=== PATIENT | female | born 1950 | race Caucasian/White ===

== ENCOUNTER 2017-09-07 00:24 | Inpatient (IN) | payer BC ==
[2017-09-07 01:26] LABS: #Eosinphils 0.3 thou/uL (0.0-0.7); #Lymphocytes 2.1 thou/uL (1.20-3.40); #Monocytes 0.9 thou/uL (0.11-0.59); #Neutrophils 6.9 thou/uL (1.40-6.50); %Basophils 0.4 % (0.0-1.0); %Eosinophils 2.7 % (0.0-10.0); %Lymphocytes 20.6 % (21.0-51.0); %Monocytes 8.9 % (0.0-10.0); %Neutrophils 67.5 % (42.0-75.0); Hemoglobin 15.4 g/dL (12.0-16.0); Mean Corpuscular Hemoglobin 31.5 pg (27.0-31.0); Mean Corpuscular Volume 98.4 fl (81.0-99.0); Mean Platelet Volume 7.2 fL (7.4-10.4); Platelet Count 285 thou/uL (130-400); RBC Distribution Width 13.4 % (11.5-14.5); Red Blood Cell (RBC) Count 4.87 mill/uL (4.20-5.40); White Blood Cell (WBC) Count 10.2 thou/uL (4.8-10.8)
[2017-09-07 01:42] LABS: CKMB 0.6 ng/mL (0-6.6); Troponin I Less than 0.010 ng/mL (< 0.028)
[2017-09-07 01:44] LABS: ALT (SGPT) 28 U/L (8-55); AST (SGOT) 18 U/L (5-34); Albumin 4.1 g/dL (3.4-4.8); Alkaline Phosphatase 94 U/L (40-150); Anion Gap 16 mmol/L (10-20); BUN (Urea Nitrogen) 10 mg/dL (9.8-20.1); Bilirubin, Total 0.4 mg/dL (0.2-1.2); CK (CPK) 28 U/L (29-168); Calc. Creatinine Clearance 0 mL/min (70-130); Calcium 9.9 mg/dL (7.8-10.44); Carbon Dioxide 26 mmol/L (23-31); Chloride 101 mmol/L (98-107); Estimated GFR-MDRD 66; Globulin 3.7 g/dL (2.4-3.5); Glucose 104 mg/dL (80-115); Potassium 4.6 mmol/L (3.5-5.1); Protein, Total 7.8 g/dL (6.0-8.3); Sodium 138 mmol/L (136-145)
[2017-09-07] MEDS ORDERED: Nitroglycerin 0.4 MG TAB (25 Tab Bottle) ONE (02:25)
[2017-09-07] MEDS ORDERED: Ondansetron HCl/PF 4 MG/2 ML Vial ONE (02:25)
[2017-09-07] MEDS ORDERED: Albuterol Sulfate 2.5 mg/3 ml Neb ONE (05:36)
[2017-09-07 06:43] LABS: CKMB 0.6 ng/mL (0-6.6); Troponin I Less than 0.010 ng/mL (< 0.028)
--- NOTE | 2017-09-07 07:51 | RAD ---
PA AND LATERAL VIEWS CHEST: HISTORY: Dyspnea. FINDINGS: Comparison is made with the exam dated 02/02/11. The heart size is enlarged. The lungs are expanded without confluent areas of consolidation, pneumothorax, porsche pulmonary edema, or pleural effusions. There are mild degenerative changes in the spine. IMPRESSION: Cardiomegaly. POS: NOA
[2017-09-07] MEDS ORDERED: Artificial Tears 18 DROP/0.9 ML EA EYE PRN (09:23)
[2017-09-07] MEDS ORDERED: Senokot 8.6 MG TAB PO PRN (09:23)
[2017-09-07] MEDS ORDERED: Zolpidem Tartrate 5 MG TAB PO PRN (09:23)
[2017-09-07] MEDS ORDERED: Eucerin (Mineral Oil/Petrolatum,White) 30 gm Jar TOP PRN (09:23)
[2017-09-07] MEDS ORDERED: Sodium Chloride 0.65% Nasal 44 ML BOT EA NARE PRN (09:23)
[2017-09-07] MEDS ORDERED: Ondansetron ODT 4 MG TAB PO PRN (09:23)
[2017-09-07] MEDS ORDERED: Dextrose 50% Abboject 50 ML SYRINGE SLOW IVP PRN (09:23)
[2017-09-07] MEDS ORDERED: Ondansetron HCl/PF 4 MG/2 ML Vial IVP PRN (09:23)
[2017-09-07] MEDS ORDERED: Dextrose 5% in Water 1,000 ML IV PRN (09:23)
[2017-09-07] MEDS ORDERED: hydrALAZINE 20 MG/ML VIAL SLOW IVP PRN (09:23)
[2017-09-07] MEDS ORDERED: Loratadine 10 MG TAB PO PRN (09:23)
[2017-09-07] MEDS ORDERED: Loperamide HCl 2 MG CAP PO PRN (09:23)
[2017-09-07] MEDS ORDERED: HumaLOG 300 UNITS/3 ML VIAL SC PRN ×2 (09:23)
[2017-09-07] MEDS ORDERED: Mag-Al 1200 mg/1200 mg/30 ML UDCUP PO PRN (09:23)
[2017-09-07] MEDS ORDERED: Chloraseptic Spray 180 ml Bottle PO PRN (09:23)
[2017-09-07] MEDS ORDERED: Acetaminophen 325 MG TAB PO PRN (09:23)
[2017-09-07] MEDS ORDERED: Diabetic Tussin 200 MG/10 ML UDCUP PO PRN (09:23)
[2017-09-07] MEDS ORDERED: Nitroglycerin 0.4 MG TAB (25 Tab Bottle) SL PRN (09:23)
[2017-09-07] MEDS ORDERED: Milk Of Magnesia 30 ML UDCUP PO PRN (09:23)
[2017-09-07 10:11] LABS: Troponin I Less than 0.010 ng/mL (< 0.028)
--- NOTE | 2017-09-07 12:32 | HP ---
PRIMARY CARE PHYSICIAN: Lisa Elkins. REASON FOR ADMISSION: COPD/asthma exacerbation with bronchitis. HISTORY OF PRESENT ILLNESS: A 66-year-old female who has history of asthma/COPD, morbid obesity, natividad betes type 2 who came to emergency room for evaluation of shortness of breath. Patient reports that for the last 3 months, she is having increasing shortness of breath. Shortness of breath gets worse when she lies down. She has intermittent coughing spell that causes her chest wall to hurt. She als o gets dyspnea on exertion. The patient reports that she has significant weight gain over last sever al months. She was having subjective fever at home. She denies any hemoptysis. She denies any prod uctive of phlegm. She denies any palpitations, dizziness, or syncope. She denies any lower extremit y edema. Patient reports that over the last couple of months, she has tried different antibiotic cou rse and steroid course without any significant help. She is up to date in her flu vaccine. She jhonny es any exertional chest pain, but she attributes her chest discomfort or ribcage pain because of coug sandor and because of coughing she also gets lower abdominal discomfort as well as back discomfort. Fo r the last 3 days she was not able to lie down and unable to sleep and that is why she decided to com e to the ER. In the emergency room, she was tachycardic. She was saturating normal on room air. Sh e was febrile and hemodynamically stable. She denies any UTI symptoms. She denies any constipation, diarrhea, melena, hematochezia. ALLERGIES: LATEX, NATURAL RUBBER, and SULFA DRUGS. CURRENT HOME MEDICATIONS: Synthroid 200 mcg p.o. daily, metformin 1000 mg p.o. b.i.d., albuterol neb ulization as needed basis, Pulmicort nebulization twice daily, Phenergan with codeine bedtime, Cymbal ta 30 mg daily, metoprolol succinate 50 mg p.o. daily, Perforomist twice daily. REVIEW OF SYSTEMS: The following complete review of systems was negative, unless otherwise mentioned in the HPI or below: Constitutional: Weight loss or gain, ability to conduct usual activities. Skin: Rash, itching. Eyes: Double vision, pain. ENT/Mouth: Nose bleeding, neck stiffness, pain, tenderness. Cardiovascular: Palpitations, dyspnea on exertion, orthopnea. Respiratory: Shortness of breath, wheezing, cough, hemoptysis, fever or night sweats. Gastrointestinal: Poor appetite, abdominal pain, heartburn, nausea, vomiting, constipation, or diarr hea. Genitourinary: Urgency, frequency, dysuria, nocturia. Musculoskeletal: Pain, swelling. Neurologic/Psychiatric: Anxiety, depression. Allergy/Immunologic: Skin rash, bleeding tendency. Please see my HPI for pertinent positive and negative. All other review of systems reviewed and nega tive except as mentioned in HPI. PAST MEDICAL HISTORY: Diabetes type 2, morbid obesity, obstructive sleep apnea on CPAP, hypothyroidi sm, hypertension, gout, dyslipidemia, COPD/asthma, history of right renal cell carcinoma required nep hrectomy, and gastroesophageal reflux disease. PAST PSYCHIATRIC HISTORY: Anxiety and depression. PAST SURGICAL HISTORY: Deviated nasal septum repair, right eardrum repair, bladder suspension, hyste rectomy, right nephrectomy, appendicectomy, and bilateral knee replacement. SOCIAL HISTORY: Patient is denying any tobacco, alcohol or illicit drug abuse. She is working in [employer]. She is working as a clerical worker. FAMILY HISTORY: Father by age of 40 from aneurysm. No family history of coronary artery diseas e, stroke or cancer. PHYSICAL EXAMINATION: VITAL SIGNS: On arrival, blood pressure 107/51, pulse 94, respiratory rate 28, temperature 100.0, pu lse 114, saturation 93% on room air, and weight 161 kilograms. GENERAL: Patient is currently alert, awake, no obvious acute distress. HEAD: Normocephalic, atraumatic. EYES: Pupils round, reactive to light. Extraocular muscles intact. ENT: Oropharynx within normal limits, no pharyngeal erythema, no exudate. No oral thrush. NECK: Supple, no JVD, no thyromegaly, no carotid bruit, no meningeal signs of irritation. LUNGS: Few end expiratory wheezing heard, reduced air entry on both sides. No rales. No accessory muscles of respiration in use. Obesity limiting examination. CARDIAC: S1, S2 regular. Obesity limiting examination, but no murmur, no gallop, no rub. ABDOMEN: Morbid obesity present. Bowel sounds present. No suprapubic tenderness. No peritoneal si gn, no guarding, no rigidity, no rebound. BACK: Examination unremarkable. No CVA tenderness. EXTREMITIES: Upper extremity passive movements of all joints are normal. Lower extremities: No sandee ma. Good peripheral pulsation. SKIN: No skin rash. HEMATOLOGICAL SYSTEM: No lymphadenopathy. PSYCHIATRIC: Normal affect. NEUROLOGIC: Nonfocal examination. SIGNIFICANT LABORATORY DATA AND IMAGING DATA: 1. CBC: WBC 10.2, hemoglobin 15.4, platelet 285. 2. BMP: Sodium 138, potassium 4.6, chloride 101, carbon dioxide 26, BUN 10, creatinine 0.86, glucos e 104, calcium 9.9. 3. LFT: AST 18, ALT 28, alkaline phosphatase 94, albumin 4.1, CK 28. 4. Cardiac enzymes are already negative x3. BNP 83.2. 5. Chest x-ray based on my review, no acute cardiopulmonary process, only cardiomegaly. 6. EKG showing normal sinus rhythm, nonspecific ST-T changes in anterolateral lead. ASSESSMENT AND PLAN/IMPRESSION: 1. Chronic obstructive pulmonary disease/asthma exacerbation with bronchitis. This patient's curren t presentation of dyspnea increasing along with chest wall pain with cough; all consistent with chron ic obstructive pulmonary disease with bronchitis. This patient has not improved and is getting worse day by day basis. We already ruled out cardiac etiology with negative cardiac enzymes x3 and her de scription is not consistent with cardiac etiology. Her BNP is normal. She already had echocardiogra phy before which was normal. She does not have any thromboembolic disorder. At this point, patient will need to be admitted in hospital and we will continue with DuoNeb q.6 hourly along with Pulmicort nebulization twice daily. We will also start empiric antibiotic therapy with Levaquin 500 mg IV clinton ly. We will check a respiratory virus panel and we will treat symptomatically for her cough. 2. Diabetes type 2. We will resume patient's home medication with metformin 1000 mg p.o. b.i.d. Di abetic diet will be given and insulin as per sliding scale per protocol. 3. Hypothyroidism. We will continue Synthroid 200 mcg p.o. daily. 4. Anxiety and depression. We will continue Cymbalta 30 mg p.o. daily. 5. Hypertension. The patient's blood pressure is well controlled at this point. Because of broncho spasm, I will hold on beta lima therapy and upon discharge we will consider restarting those medic ations. 6. Obstructive sleep apnea. The patient will continue her continuous positive airway pressure machi ne while in hospital. 7. Gastroesophageal reflux disease. We will continue Pepcid 20 mg p.o. b.i.d. 8. Dyslipidemia. The patient can have her home medication pravastatin 20 mg p.o. at bedtime. 9. History of renal cell carcinoma required nephrectomy in the past. Currently, problem is stable. 10. Deep venous thrombosis prophylaxis, Lovenox 40 mg subcutaneously daily. 11. Gastrointestinal prophylaxis. We will also add Protonix 40 mg p.o. daily. 12. Gout. After verification of her dose, we will continue allopurinol as per home dosage. Code status: The patient is FULL CODE. The patient is making her decision by herself. Disposition plan based on clinical course. We are expecting patient's stay in the hospital for 24-48 hours. Marquise n of care discussed with the patient in detail.
[2017-09-07] MEDS ORDERED: Famotidine 20 MG TAB ONE (13:06)
[2017-09-07] MEDS ORDERED: Enoxaparin Sodium 40 MG/0.4 ML SYRINGE ONE (13:06)
[2017-09-07] MEDS ORDERED: HumaLOG 300 UNITS/3 ML VIAL ONE (13:36)
[2017-09-07] MEDS ORDERED: DULoxetine 30 MG CAP PO SCH (14:30)
[2017-09-07] MEDS ORDERED: Enoxaparin Sodium 40 MG/0.4 ML SYRINGE SC SCH (14:30)
[2017-09-07] MEDS ORDERED: metFORMIN 500 MG TAB PO SCH (14:30)
[2017-09-07] MEDS ORDERED: Levothyroxine Sodium 100 MCG TAB PO SCH (14:30)
[2017-09-07 16:48] VITALS: BMI 57.6
[2017-09-07] MEDS: metFORMIN 500 MG TAB PO SCH (17:41)
[2017-09-07] MEDS: Budesonide 0.5 MG/2 ML NEB INH SCH (19:32)
[2017-09-07] MEDS ORDERED: Famotidine 20 MG TAB PO SCH (21:00)
[2017-09-07] MEDS: guaiFENesin ER 600 MG TAB PO SCH (21:20)
[2017-09-07] MEDS: HYDROcodone/Acetaminophen 5/325 mg Tablet PO PRN (21:41)
[2017-09-08] MEDS: Levothyroxine Sodium 100 MCG TAB PO SCH (05:40)
[2017-09-08] MEDS: HYDROcodone/Acetaminophen 5/325 mg Tablet PO PRN (05:46)
[2017-09-08] MEDS: Budesonide 0.5 MG/2 ML NEB INH SCH ×2 (08:04→19:21)
[2017-09-08] MEDS: metFORMIN 500 MG TAB PO SCH ×2 (09:05→19:49)
[2017-09-08] MEDS: guaiFENesin ER 600 MG TAB PO SCH ×2 (09:05→19:49)
[2017-09-08] MEDS: Enoxaparin Sodium 40 MG/0.4 ML SYRINGE SC SCH (09:05)
[2017-09-08] MEDS: DULoxetine 30 MG CAP PO SCH (09:05)
--- NOTE | 2017-09-08 10:22 | PDOC.PN ---
- Subjective Encounter Start Date: 09/08/17 Encounter Start Time: 07:10 -: old records requested/rev Patient seen and examined. No new complaints. No overnight events less dyspnea, but not upto her baseline - Objective Resuscitation Status: Resuscitation Status FULL:Full Resuscitation MAR Reviewed: Yes Vital Signs & Weight: Vital Signs (12 hours) Temp Pulse Resp BP Pulse Ox 09/08/17 08:02 106 H 18 88 L 09/08/17 07:25 98.4 F 88 20 151/77 H 90 L 09/08/17 04:52 98.3 F 83 20 135/62 93 L 09/08/17 04:14 94 L 09/08/17 02:37 85 16 93 L 09/08/17 01:20 84 16 95 Weight Weight 368 lb 7 oz I&O: 09/07/17 09/08/17 09/09/17 06:59 06:59 06:59 Output Total 500 Balance -500 Result Diagrams: 09/07/17 01:10 09/07/17 01:10 Additional Labs: Accuchecks 09/08/17 09/07/17 09/07/17 05:44 21:45 17:16 POC Glucose 135 H 129 H 98 09/07/17 13:36 POC Glucose 159 H EKG Reviewed by me: Yes (nsr) Phys Exam - Physical Examination Constitutional: NAD HEENT: PERRLA, moist MMs, sclera anicteric Neck: no JVD, supple Respiratory: no rales, wheezing present reduced air entry Cardiovascular: RRR, no significant murmur, no rub Gastrointestinal: soft, non-tender, no distention, positive bowel sounds Musculoskeletal: no edema, pulses present Neurological: non-focal, normal sensation, moves all 4 limbs Lymphatic: no nodes Psychiatric: normal affect, A&O x 3 Skin: no rash, normal turgor Dx/Plan (1) COPD exacerbation Code(s): J44.1 - CHRONIC OBSTRUCTIVE PULMONARY DISEASE W (ACUTE) EXACERBATION Status: Acute Comment: due to RSV virus infection (2) Anxiety and depression Code(s): F41.8 - OTHER SPECIFIED ANXIETY DISORDERS Status: Chronic (3) Diabetes type 2, controlled Code(s): E11.9 - TYPE 2 DIABETES MELLITUS WITHOUT COMPLICATIONS Status: Chronic (4) Dyslipidemia Code(s): E78.5 - HYPERLIPIDEMIA, UNSPECIFIED Status: Chronic (5) GERD (gastroesophageal reflux disease) Code(s): K21.9 - GASTRO-ESOPHAGEAL REFLUX DISEASE WITHOUT ESOPHAGITIS Status: Chronic (6) H/O renal cell carcinoma Code(s): Z85.528 - PERSONAL HISTORY OF OTHER MALIGNANT NEOPLASM OF KIDNEY Status: Chronic (7) Hypothyroidism Code(s): E03.9 - HYPOTHYROIDISM, UNSPECIFIED Status: Chronic (8) BERTHA (obstructive sleep apnea) Code(s): G47.33 - OBSTRUCTIVE SLEEP APNEA (ADULT) (PEDIATRIC) Status: Chronic - Plan cont current plan of care, continue antibiotics, respiratory therapy * DC tele * continue current medical treatment * will check oxygen saturation on room air * medication reviewed as below * symptomatic treatment * possible discharge tomorrow. Review of Systems - Review of Systems Constitutional: negative: fever, chills, sweats, weakness, malaise, other Eyes: negative: Pain, Vision Change, Conjunctivae Inflammation, Eyelid Inflammation, Redness, Other ENT: negative: Ear Pain, Ear Discharge, Nose Pain, Nose Discharge, Nose Congestion, Mouth Pain, Mouth Swelling, Throat Pain, Throat Swelling, Other Respiratory: Cough, Wheezing. negative: Dry, Shortness of Breath, Hemoptysis, SOB with Excertion, Pleuritic Pain, Sputum Cardiovascular: negative: chest pain, palpitations, orthopnea, paroxysmal nocturnal dyspnea, edema, light headedness, other Gastrointestinal: negative: Nausea, Vomiting, Abdominal Pain, Diarrhea, Constipation, Melena, Hematochezia, Other Genitourinary: negative: Dysuria, Frequency, Incontinence, Hematuria, Retention , Other Musculoskeletal: negative: Neck Pain, Shoulder Pain, Arm Pain, Back Pain, Hand Pain, Leg Pain, Foot Pain, Other Skin: negative: Rash, Lesions, Sal, Bruising, Other - Medications/Allergies Allergies/Adverse Reactions: Allergies Allergy/AdvReac Type Severity Reaction Status Date / Time Latex, Natural Rubber Allergy Verified 11/12/14 15:35 Sulfa (Sulfonamide Allergy Verified 01/22/14 09:08 Antibiotics) Medications: Current Medications Acetaminophen (Tylenol) 650 mg PO Q4H PRN PRN Reason: Headache/Fever or Pain Last Admin: 09/07/17 17:42 Dose: 650 mg Hydrocodone Bitart/Acetaminophen ([place] 5/325) 1 tab PO Q4H PRN PRN Reason: Moderate Pain (4-6) Last Admin: 09/08/17 05:46 Dose: 1 tab Al Hydroxide/Mg Hydroxide (Maalox) 30 ml PO Q6H PRN PRN Reason: Heartburn or Indigestion Albuterol/Ipratropium (Duoneb) 3 ml NEB [id number] [facility] Last Admin: 09/08/17 08:02 Dose: 3 ml Artificial Tears (Tears Naturale) 0 drop EA EYE PRN PRN PRN Reason: Dry Eyes Budesonide (Pulmicort Neb Solution) 0.5 mg INH BID-RT [facility] Last Admin: 09/08/17 08:04 Dose: 0.5 mg Dextrose/Water (Dextrose 50%) 25 gm SLOW IVP PRN PRN PRN Reason: Hypoglycemia Duloxetine HCl (Cymbalta) 30 mg PO DAILY [facility] Last Admin: 09/08/17 09:05 Dose: 30 mg Enoxaparin Sodium (Lovenox) 40 mg SC 0900 [facility] Last Admin: 09/08/17 09:05 Dose: 40 mg Glucagon (Glucagon) 1 mg IM PRN PRN PRN Reason: Hypoglycemia Guaifenesin (Robitussin Sf) 200 mg PO Q4H PRN PRN Reason: Cough Guaifenesin (Mucinex) 600 mg PO Q12HR [facility] Last Admin: 09/08/17 09:05 Dose: 600 mg Hydralazine HCl (Apresoline) 10 mg SLOW IVP Q4H PRN PRN Reason: Systolic BP > 180 Dextrose/Water (D5w) 1,000 mls @ 0 mls/hr IV .Q0M PRN; As Directed PRN Reason: Hypoglycemia Levofloxacin 500 mg/ Device 100 mls @ 100 mls/hr IVPB 1300 [facility] Last Admin: 09/07/17 17:08 Dose: Not Given Insulin Human Lispro (Humalog) 0 units SC .MODERATE SLIDING SC PRN PRN Reason: Moderate Correctional Scale Insulin Human Lispro (Humalog) 0 units SC .BEDTIME SLIDING SC PRN PRN Reason: Bedtime Correctional Scale Levothyroxine Sodium (Synthroid) 200 mcg PO 0600 [facility] Last Admin: 09/08/17 05:40 Dose: 200 mcg Loperamide HCl (Imodium) 2 mg PO PRN PRN PRN Reason: Diarrhea/Loose Stools Loratadine (Claritin) 10 mg PO DAILYPRN PRN PRN Reason: Sinus Symptoms Magnesium Hydroxide (Milk Of Magnesium) 30 ml PO DAILYPRN PRN PRN Reason: Constipation Metformin HCl (Glucophage) 1,000 mg PO BID-[facility] Last Admin: 09/08/17 09:05 Dose: 1,000 mg Mineral Oil/White Petrolatum (Eucerin Cream) 0 gm TOP BIDPRN PRN PRN Reason: Dry Skin Nitroglycerin (Nitrostat) 0.4 mg SL Q5MIN PRN PRN Reason: Chest Pain Ondansetron HCl (Zofran Odt) 4 mg PO Q6H PRN PRN Reason: Nausea/Vomiting Ondansetron HCl (Zofran) 4 mg IVP Q6H PRN PRN Reason: Nausea/Vomiting Pantoprazole Sodium (Protonix) 40 mg PO DAILY [facility] Last Admin: 09/08/17 09:06 Dose: 40 mg Phenol (Chloraseptic [place] 180 Ml Bot) 0 ml PO PRN PRN PRN Reason: Sore Throat Senna (Senokot) 2 tab PO HSPRN PRN PRN Reason: Constipation Sodium Chloride ([place] Nasal [place] 0.65%) 0 ml EA NARE QIDPRN PRN PRN Reason: Nasal Congestion Sodium Chloride (Flush - Normal Saline) 10 ml IVF Q12HR [facility] Last Admin: 09/08/17 09:06 Dose: 10 ml Sodium Chloride (Flush - Normal Saline) 10 ml IVF PRN PRN PRN Reason: Saline Flush Zolpidem Tartrate (Ambien) 5 mg PO HSPRN PRN PRN Reason: Insomnia
[2017-09-08] MEDS ORDERED: Budesonide 0.5 MG/2 ML NEB ONE (19:19)
[2017-09-09] MEDS: Levothyroxine Sodium 100 MCG TAB PO SCH (05:54)
[2017-09-09] MEDS: Budesonide 0.5 MG/2 ML NEB INH SCH (07:15)
[2017-09-09] MEDS: DULoxetine 30 MG CAP PO SCH (09:29)
[2017-09-09] MEDS: Enoxaparin Sodium 40 MG/0.4 ML SYRINGE SC SCH (09:29)
[2017-09-09] MEDS: metFORMIN 500 MG TAB PO SCH (09:29)
[2017-09-09] MEDS: guaiFENesin ER 600 MG TAB PO SCH (09:30)
[2017-09-09 09:58] VITALS: BP 105/69; TEMP 98
--- NOTE | 2017-09-09 10:45 | PDOC.PN ---
- Subjective Encounter Start Date: 09/09/17 Encounter Start Time: 07:40 Patient seen and examined. No new complaints. No overnight events - Objective Resuscitation Status: Resuscitation Status FULL:Full Resuscitation MAR Reviewed: Yes Vital Signs & Weight: Vital Signs (12 hours) Temp Pulse Resp BP Pulse Ox 09/09/17 08:00 98.0 F 92 20 105/69 100 09/09/17 07:15 90 16 09/09/17 04:00 98.9 F 98 20 154/77 H 94 L 09/09/17 01:16 105 H 20 92 L Weight Weight 368 lb 7 oz I&O: 09/08/17 09/09/17 09/10/17 06:59 06:59 06:59 Intake Total 1750 Output Total 500 2300 Balance -500 -550 Result Diagrams: 09/07/17 01:10 09/07/17 01:10 Additional Labs: Accuchecks 09/09/17 09/09/17 09/08/17 05:57 01:58 20:15 POC Glucose 147 H 144 H 175 H 09/08/17 16:28 POC Glucose 125 H Phys Exam - Physical Examination Constitutional: NAD HEENT: PERRLA, moist MMs, sclera anicteric Neck: no JVD, supple Respiratory: no wheezing, no rales, no rhonchi Cardiovascular: RRR, no significant murmur, no rub Gastrointestinal: soft, non-tender, no distention, positive bowel sounds Musculoskeletal: no edema, pulses present Neurological: non-focal, normal sensation, moves all 4 limbs Psychiatric: normal affect, A&O x 3 Skin: no rash, normal turgor Dx/Plan (1) COPD exacerbation Code(s): J44.1 - CHRONIC OBSTRUCTIVE PULMONARY DISEASE W (ACUTE) EXACERBATION Status: Acute Comment: due to RSV virus infection (2) Anxiety and depression Code(s): F41.8 - OTHER SPECIFIED ANXIETY DISORDERS Status: Chronic (3) Diabetes type 2, controlled Code(s): E11.9 - TYPE 2 DIABETES MELLITUS WITHOUT COMPLICATIONS Status: Chronic (4) Dyslipidemia Code(s): E78.5 - HYPERLIPIDEMIA, UNSPECIFIED Status: Chronic (5) GERD (gastroesophageal reflux disease) Code(s): K21.9 - GASTRO-ESOPHAGEAL REFLUX DISEASE WITHOUT ESOPHAGITIS Status: Chronic (6) H/O renal cell carcinoma Code(s): Z85.528 - PERSONAL HISTORY OF OTHER MALIGNANT NEOPLASM OF KIDNEY Status: Chronic (7) Hypothyroidism Code(s): E03.9 - HYPOTHYROIDISM, UNSPECIFIED Status: Chronic (8) BERTHA (obstructive sleep apnea) Code(s): G47.33 - OBSTRUCTIVE SLEEP APNEA (ADULT) (PEDIATRIC) Status: Chronic - Plan cont current plan of care, continue antibiotics * medication reviewed as below * symptomatic treatment * see discharge summery * all new medication prescription sent to pharmacy. Review of Systems - Review of Systems ENT: negative: Ear Pain, Ear Discharge, Nose Pain, Nose Discharge, Nose Congestion, Mouth Pain, Mouth Swelling, Throat Pain, Throat Swelling, Other Respiratory: negative: Cough, Dry, Shortness of Breath, Hemoptysis, SOB with Excertion, Pleuritic Pain, Sputum, Wheezing Cardiovascular: negative: chest pain, palpitations, orthopnea, paroxysmal nocturnal dyspnea, edema, light headedness, other Gastrointestinal: negative: Nausea, Vomiting, Abdominal Pain, Diarrhea, Constipation, Melena, Hematochezia, Other Genitourinary: negative: Dysuria, Frequency, Incontinence, Hematuria, Retention , Other Musculoskeletal: negative: Neck Pain, Shoulder Pain, Arm Pain, Back Pain, Hand Pain, Leg Pain, Foot Pain, Other Skin: negative: Rash, Lesions, Sal, Bruising, Other - Medications/Allergies Allergies/Adverse Reactions: Allergies Allergy/AdvReac Type Severity Reaction Status Date / Time Latex, Natural Rubber Allergy Verified 11/12/14 15:35 Sulfa (Sulfonamide Allergy Verified 01/22/14 09:08 Antibiotics) Medications: Current Medications Acetaminophen (Tylenol) 650 mg PO Q4H PRN PRN Reason: Headache/Fever or Pain Last Admin: 09/07/17 17:42 Dose: 650 mg Hydrocodone Bitart/Acetaminophen ([place] 5/325) 1 tab PO Q4H PRN PRN Reason: Moderate Pain (4-6) Last Admin: 09/08/17 05:46 Dose: 1 tab Al Hydroxide/Mg Hydroxide (Maalox) 30 ml PO Q6H PRN PRN Reason: Heartburn or Indigestion Albuterol/Ipratropium (Duoneb) 3 ml NEB [id number] [facility] Last Admin: 09/09/17 07:15 Dose: 3 ml Artificial Tears (Tears Naturale) 0 drop EA EYE PRN PRN PRN Reason: Dry Eyes Budesonide (Pulmicort Neb Solution) 0.5 mg INH BID-RT [facility] Last Admin: 09/09/17 07:15 Dose: 0.5 mg Dextrose/Water (Dextrose 50%) 25 gm SLOW IVP PRN PRN PRN Reason: Hypoglycemia Duloxetine HCl (Cymbalta) 30 mg PO DAILY [facility] Last Admin: 09/09/17 09:29 Dose: 30 mg Enoxaparin Sodium (Lovenox) 40 mg SC 0900 [facility] Last Admin: 09/09/17 09:29 Dose: 40 mg Glucagon (Glucagon) 1 mg IM PRN PRN PRN Reason: Hypoglycemia Guaifenesin (Robitussin Sf) 200 mg PO Q4H PRN PRN Reason: Cough Guaifenesin (Mucinex) 600 mg PO Q12HR [facility] Last Admin: 09/09/17 09:30 Dose: 600 mg Hydralazine HCl (Apresoline) 10 mg SLOW IVP Q4H PRN PRN Reason: Systolic BP > 180 Dextrose/Water (D5w) 1,000 mls @ 0 mls/hr IV .Q0M PRN; As Directed PRN Reason: Hypoglycemia Levofloxacin 500 mg/ Device 100 mls @ 100 mls/hr IVPB 1300 [facility] Last Admin: 09/08/17 14:27 Dose: 100 mls Insulin Human Lispro (Humalog) 0 units SC .MODERATE SLIDING SC PRN PRN Reason: Moderate Correctional Scale Insulin Human Lispro (Humalog) 0 units SC .BEDTIME SLIDING SC PRN PRN Reason: Bedtime Correctional Scale Levothyroxine Sodium (Synthroid) 200 mcg PO 0600 [facility] Last Admin: 09/09/17 05:54 Dose: 200 mcg Loperamide HCl (Imodium) 2 mg PO PRN PRN PRN Reason: Diarrhea/Loose Stools Loratadine (Claritin) 10 mg PO DAILYPRN PRN PRN Reason: Sinus Symptoms Last Admin: 09/09/17 01:50 Dose: 10 mg Magnesium Hydroxide (Milk Of Magnesium) 30 ml PO DAILYPRN PRN PRN Reason: Constipation Metformin HCl (Glucophage) 1,000 mg PO BID-WM [facility] Last Admin: 09/09/17 09:29 Dose: 1,000 mg Mineral Oil/White Petrolatum (Eucerin Cream) 0 gm TOP BIDPRN PRN PRN Reason: Dry Skin Nitroglycerin (Nitrostat) 0.4 mg SL Q5MIN PRN PRN Reason: Chest Pain Ondansetron HCl (Zofran Odt) 4 mg PO Q6H PRN PRN Reason: Nausea/Vomiting Ondansetron HCl (Zofran) 4 mg IVP Q6H PRN PRN Reason: Nausea/Vomiting Pantoprazole Sodium (Protonix) 40 mg PO DAILY [facility] Last Admin: 09/09/17 09:29 Dose: 40 mg Phenol (Chloraseptic [place] 180 Ml Bot) 0 ml PO PRN PRN PRN Reason: Sore Throat Senna (Senokot) 2 tab PO HSPRN PRN PRN Reason: Constipation Sodium Chloride ([place] Nasal [place] 0.65%) 0 ml EA NARE QIDPRN PRN PRN Reason: Nasal Congestion Sodium Chloride (Flush - Normal Saline) 10 ml IVF Q12HR [facility] Last Admin: 09/09/17 09:30 Dose: 10 ml Sodium Chloride (Flush - Normal Saline) 10 ml IVF PRN PRN PRN Reason: Saline Flush Zolpidem Tartrate (Ambien) 5 mg PO HSPRN PRN PRN Reason: Insomnia
--- NOTE | 2017-09-09 10:50 | DIS ---
DATE OF ADMISSION: 09/07/2017 DATE OF DISCHARGE: 09/09/2017 PRIMARY CARE PHYSICIAN: Lisa Elkins. DISCHARGE DISPOSITION: Home. PRIMARY DISCHARGE DIAGNOSIS: Chronic obstructive pulmonary disease exacerbation, respiratory syncyti al virus infection. SECONDARY DISCHARGE DIAGNOSES: Obstructive sleep apnea, hypothyroidism, history of renal cell carcin chase, gastroesophageal reflux disease, dyslipidemia, diabetes type 2, anxiety and depression, morbid o besity with BMI of 57. PRIMARY PROCEDURE/OPERATION: None. RADIOLOGICAL INVESTIGATION: Chest x-ray was unremarkable. SIGNIFICANT LABS: Hemoglobin 15.4, creatinine 0.86. Cardiac enzymes negative. Respiratory panel po sitive for RSV. DISCHARGE MEDICATIONS: Albuterol sulfate nebulization b.i.d. as needed, Xanax 1 mg p.o. t.i.d. p.r.n ., Pulmicort nebulization b.i.d., Cymbalta 30 mg p.o. daily, Perforomist 20 mcg inhalation b.i.d., Mu cinex 600 mg twice daily for 7 days, Levaquin 500 mg p.o. daily for 7 days, Synthroid 200 mcg p.o. da lisseth, metformin 1000 mg p.o. b.i.d., Toprol-XL 50 mg p.o. daily, Protonix 40 mg p.o. daily, prednisone 20 mg p.o. daily for 7 days, Phenergan with codeine 5 mL p.o. b.i.d. p.r.n. CONTRAINDICATIONS: None. CODE STATUS: FULL CODE. INPATIENT CONTRACTS DIRECTOR: None. ALLERGIES: LATEX, NATURAL RUBBER and SULFA. DISCHARGE PLAN: Post hospital, the patient will follow up with primary care physician in 1 week. HOSPITAL COURSE: A 66-year-old female who was admitted by me. Please see my HPI for further details . The patient was having prolonged cough, shortness of breath, and she was diagnosed with COPD flare up. Respiratory virus panel was positive for RSV infection, most likely RSV infection precipitated h er COPD. She was admitted to telemetry floor and we ruled out acute coronary syndrome. Subsequently , we transferred her to medical floor. While in hospital, we treated optimally for COPD with DuoNeb, Pulmicort, Solu-Medrol, Mucinex, empiric antibiotic therapy with Levaquin. The patient had signific ant clinical improvement and she was transferred to medical floor. She was not requiring any oxygen. She was ambulatory and tolerating p.o. well. All her home medication was continued while in hospit al as well as on discharge. At this point, patient is medically stable for discharge. The patient is seen and examined at [facility] today. Please see my progress note from today for further details.
--- NOTE | 2017-09-11 13:47 | EKG ---
Test Reason : SOB Blood Pressure : / mmHG Vent. Rate : 090 BPM Atrial Rate : 090 BPM P-R Int : 148 ms QRS Dur : 080 ms QT Int : 356 ms P-R-T Axes : 038 081 046 degrees QTc Int : 435 ms Normal sinus rhythm Abnormal ECG Confirmed by JAZMIN ADAMS [id number]), research editor JUSTO DORMAN ([id number] on 09/11/2017 1:47:08 PM Referred By: TRIAGE Confirmed By:JAZMIN ADAMS
== END 2017-09-09 12:22 | disposition home or self-care (01) | DRG 191 ==
LOC: ERS 00:24 → ERHOLD 06:42 → 2SE 16:00 → T4-B 09-08 17:58
PROVIDERS: ADMIT Family Medicine; ATTEND Family Medicine
DX: J44.1 Chronic obstructive pulmonary disease with (acute) exacerbation (principal); Z68.43 Body mass index [BMI] 50.0-59.9, adult; E66.01 Morbid (severe) obesity due to excess calories; E11.9 Type 2 diabetes mellitus without complications; Z88.2 Allergy status to sulfonamides; Z88.8 Allergy status to other drugs, medicaments and biological substances; Z91.040 Latex allergy status; Z79.84 Long term (current) use of oral hypoglycemic drugs; G47.33 Obstructive sleep apnea (adult) (pediatric); E03.9 Hypothyroidism, unspecified; I10 Essential (primary) hypertension; M10.9 Gout, unspecified; E78.5 Hyperlipidemia, unspecified; Z85.528 Personal history of other malignant neoplasm of kidney; Z90.5 Acquired absence of kidney; Z96.653 Presence of artificial knee joint, bilateral; F41.9 Anxiety disorder, unspecified; F32.9 Major depressive disorder, single episode, unspecified; K21.9 Gastro-esophageal reflux disease without esophagitis; J20.9 Acute bronchitis, unspecified; J44.0 Chronic obstructive pulmonary disease with (acute) lower respiratory infection; J20.5 Acute bronchitis due to respiratory syncytial virus
CPT/HCPCS: 36415; 36416; 71046; 80053; 82550; 82553; 83880; 84484; 85025; 87633; 87798; 93005; 94640; 94660; 96365; 96372; 96375; A4216; J1650; J1956; J2270; J2405; J7611; J7620; J7626

== ENCOUNTER 2018-09-28 12:06 | Outpatient (CLI) | payer BC, MEDICARE ==
--- NOTE | 2018-09-28 12:33 | RAD ---
RADIOGRAPH CHEST 2 VIEWS: DATE: 09-28-18 HISTORY: 67-year-old female with dyspnea. FINDINGS: There is no air space density, pulmonary edema, pleural effusion, or pneumothorax. IMPRESSION: No acute pulmonary findings. jn POS: [facility]
== END 2018-09-28 12:07 | disposition home or self-care (01) ==
LOC: RAD 12:06
PROVIDERS: ATTEND Internal Medicine Critical Care Medicine
DX: R06.00 Dyspnea, unspecified (principal)
CPT/HCPCS: 71046

== ENCOUNTER 2022-02-04 16:14 | Inpatient (IN) | payer BC ==
[2022-02-04] MEDS ORDERED: Furosemide 40 MG/4 ML VIAL ONE (17:33)
[2022-02-04 17:37] LABS: #Eosinphils 0.3 thou/uL (0.0-0.7); #Lymphocytes 2.3 thou/uL (1.20-3.40); #Monocytes 0.9 thou/uL (0.11-0.59); #Neutrophils 6.2 thou/uL (1.40-6.50); %Basophils 0.5 % (0.0-1.0); %Eosinophils 3.4 % (0.0-10.0); %Lymphocytes 23.8 % (21.0-51.0); %Monocytes 9.4 % (0.0-10.0); %Neutrophils 62.9 % (42.0-75.0); Hemoglobin 13.7 g/dL (12.0-16.0); Mean Corpuscular Hemoglobin 32.2 pg (27.0-31.0); Mean Platelet Volume 7.8 fL (7.4-10.4); Platelet Count 192 thou/uL (130-400); RBC Distribution Width 13.3 % (11.5-14.5); Red Blood Cell (RBC) Count 4.27 mill/uL (4.20-5.40); White Blood Cell (WBC) Count 9.8 thou/uL (4.8-10.8)
[2022-02-04 17:47] LABS: ALT (SGPT) 12 U/L (8-55); AST (SGOT) 13 U/L (5-34); Albumin 3.5 g/dL (3.4-4.8); Alkaline Phosphatase 70 U/L (40-110); Anion Gap 16 mmol/L (10-20); BUN (Urea Nitrogen) 17 mg/dL (9.8-20.1); Bilirubin, Total 0.5 mg/dL (0.2-1.2); Calc. Creatinine Clearance 0 mL/min (70-130); Calcium 9.8 mg/dL (7.8-10.44); Carbon Dioxide 26 mmol/L (23-31); Chloride 102 mmol/L (98-107); Estimated GFR 49; Globulin 3.2 g/dL (2.4-3.5); Glucose 151 mg/dL (80-115); Potassium 5.2 mmol/L (3.5-5.1); Protein, Total 6.7 g/dL (5.8-8.1); Sodium 139 mmol/L (136-145)
[2022-02-04] MEDS ORDERED: Ondansetron ODT 4 MG TAB SL PRN (20:00)
[2022-02-04] MEDS ORDERED: Ondansetron PF 4 MG/2 ML Vial IVP PRN (20:00)
[2022-02-04] MEDS ORDERED: Acetaminophen 325 MG TAB PO PRN (20:00)
[2022-02-04] MEDS ORDERED: Dextrose 50% Abboject 50 ML SYRINGE SLOW IVP PRN (20:35)
[2022-02-04] MEDS ORDERED: Dextrose 5% in Water 1,000 ML IV PRN (20:35)
[2022-02-05 00:41] VITALS: BMI 67.3
[2022-02-05] MEDS: ALPRAZolam 1 MG TAB PO PRN ×2 (01:53→20:05)
[2022-02-05 05:10] LABS: #Eosinphils 0.4 thou/uL (0.0-0.7); #Lymphocytes 3.1 thou/uL (1.20-3.40); #Monocytes 1.5 thou/uL (0.11-0.59); #Neutrophils 7.4 thou/uL (1.40-6.50); %Basophils 0.4 % (0.0-1.0); %Eosinophils 3.1 % (0.0-10.0); %Lymphocytes 24.8 % (21.0-51.0); %Monocytes 11.8 % (0.0-10.0); %Neutrophils 59.9 % (42.0-75.0); Hemoglobin 14.4 g/dL (12.0-16.0); Mean Corpuscular HGB CONC 30.7 g/dL (32.0-36.0); Mean Platelet Volume 8.2 fL (7.4-10.4); Platelet Count 190 thou/uL (130-400); RBC Distribution Width 13.6 % (11.5-14.5); Red Blood Cell (RBC) Count 4.66 mill/uL (4.20-5.40); White Blood Cell (WBC) Count 12.4 thou/uL (4.8-10.8)
[2022-02-05 05:28] LABS: Anion Gap 19 mmol/L (10-20); BUN (Urea Nitrogen) 17 mg/dL (9.8-20.1); Calc. Creatinine Clearance 121 mL/min (70-130); Calcium 10.4 mg/dL (7.8-10.44); Carbon Dioxide 26 mmol/L (23-31); Chloride 101 mmol/L (98-107); Estimated GFR 44; Glucose 152 mg/dL (80-115); Potassium 4.5 mmol/L (3.5-5.1); Sodium 141 mmol/L (136-145)
[2022-02-05] MEDS: Levothyroxine Sodium 100 MCG TAB PO SCH (06:04)
[2022-02-05] MEDS: Furosemide 40 MG/4 ML VIAL SLOW IVP SCH ×2 (06:05→15:00)
[2022-02-05] MEDS ORDERED: Lisinopril 2.5 MG TAB PO SCH (09:00)
[2022-02-05] MEDS: Enoxaparin Sodium 40 MG/0.4 ML SYRINGE SC SCH (09:10)
[2022-02-05] MEDS: Allopurinol 100 MG TAB PO SCH (09:10)
[2022-02-05] MEDS: Simvastatin 5 MG TAB PO SCH ×2 (09:13→09:17)
[2022-02-05] MEDS ORDERED: Gabapentin 100 MG CAP PO SCH (11:45)
[2022-02-06 05:30] LABS: Hemoglobin 13.4 g/dL (12.0-16.0); Mean Corpuscular HGB CONC 32.3 g/dL (32.0-36.0); Mean Corpuscular Hemoglobin 32.1 pg (27.0-31.0); Mean Corpuscular Volume 99.5 fL (78.0-98.0); Platelet Count 196 thou/uL (130-400); RBC Distribution Width 13.4 % (11.5-14.5); Red Blood Cell (RBC) Count 4.18 mill/uL (4.20-5.40); White Blood Cell (WBC) Count 10.3 thou/uL (4.8-10.8)
[2022-02-06 05:33] LABS: Hemoglobin A1c 8.6 % (4.0-6.0)
[2022-02-06 05:45] LABS: Anion Gap 18 mmol/L (10-20); BUN (Urea Nitrogen) 26 mg/dL (9.8-20.1); Calc. Creatinine Clearance 118 mL/min (70-130); Calcium 9.4 mg/dL (7.8-10.44); Carbon Dioxide 28 mmol/L (23-31); Chloride 97 mmol/L (98-107); Estimated GFR 43; Glucose 159 mg/dL (80-115); Sodium 139 mmol/L (136-145)
[2022-02-06 05:51] LABS: Troponin I Less than 0.010 ng/mL (< 0.028)
[2022-02-06] MEDS: Levothyroxine Sodium 100 MCG TAB PO SCH (06:03)
[2022-02-06] MEDS: Furosemide 40 MG/4 ML VIAL SLOW IVP SCH ×2 (06:03→15:23)
[2022-02-06] MEDS: Allopurinol 100 MG TAB PO SCH (09:21)
[2022-02-06] MEDS: Gabapentin 100 MG CAP PO SCH (09:23)
[2022-02-06] MEDS: Simvastatin 5 MG TAB PO SCH (09:26)
[2022-02-06] MEDS: Enoxaparin Sodium 40 MG/0.4 ML SYRINGE SC SCH (09:27)
[2022-02-06] MEDS: HumaLOG 300 UNITS/3 ML VIAL SC PRN ×2 (12:57→17:26)
[2022-02-06] MEDS: Acetaminophen/Codeine 30-300mg Tablet PO PRN (18:36)
[2022-02-06] MEDS: ALPRAZolam 1 MG TAB PO PRN (20:25)
[2022-02-07 00:41] LABS: Bacteria/HPF 1+ HPF (None Seen); Bilirubin Negative (Negative); Blood, Urine Negative (Negative); Clarity Turbid (Clear); Glucose, Urine (Dipstick) Normal (Negative); Ketone, Urine Negative (Negative); Leukocyte 500 Leu/uL (Negative); Nitrite 2+ (Negative); Protein, Urine (Dipstick) 10 mg/dL (Neg-Trace); RBC/HPF 0-3 HPF (0-3); Specific Gravity, Urine 1.014 (1.002-1.036); Urobilinogen Normal mg/dL (Less than 2); WBC/HPF Greater than 50 HPF (0-3); pH, Urine 5.5 (5.0-9.0)
[2022-02-07] MEDS: Acetaminophen/Codeine 30-300mg Tablet PO PRN ×4 (03:26→23:41)
[2022-02-07 05:16] LABS: Anion Gap 19 mmol/L (10-20); BUN (Urea Nitrogen) 32 mg/dL (9.8-20.1); Calc. Creatinine Clearance 93 mL/min (70-130); Calcium 9.6 mg/dL (7.8-10.44); Carbon Dioxide 26 mmol/L (23-31); Chloride 95 mmol/L (98-107); Estimated GFR 33; Glucose 207 mg/dL (80-115); Potassium 3.9 mmol/L (3.5-5.1); Sodium 136 mmol/L (136-145)
[2022-02-07] MEDS: Furosemide 40 MG/4 ML VIAL SLOW IVP SCH (06:10)
[2022-02-07] MEDS: Levothyroxine Sodium 100 MCG TAB PO SCH (06:10)
[2022-02-07] MEDS: HumaLOG 300 UNITS/3 ML VIAL SC PRN ×3 (06:10→17:12)
[2022-02-07] MEDS: Allopurinol 100 MG TAB PO SCH (08:05)
[2022-02-07] MEDS: Simvastatin 5 MG TAB PO SCH (08:05)
[2022-02-07] MEDS: Gabapentin 100 MG CAP PO SCH (08:06)
[2022-02-07] MEDS: Enoxaparin Sodium 40 MG/0.4 ML SYRINGE SC SCH (08:06)
[2022-02-07 11:25] LABS: Creatinine, Urine 81.24 mg/dL (47-110); Protein, Urine Random Quant Less than 10 mg/dL (1-14); Sodium, Urine 57 mmol/L (Not Available); Urea Nitrogen, Random Urine 374 mg/dl
[2022-02-07] MEDS: Aztreonam 1 GM in Sodium Chloride 0.9% 100 ML IVPB SCH ×2 (13:42→21:33)
[2022-02-07] MEDS ORDERED: HumaLOG 300 UNITS/3 ML VIAL SC PRN (21:15)
[2022-02-08] MEDS: Aztreonam 1 GM in Sodium Chloride 0.9% 100 ML IVPB SCH ×4 (04:46→21:12)
[2022-02-08 05:35] LABS: Anion Gap 17 mmol/L (10-20); BUN (Urea Nitrogen) 32 mg/dL (9.8-20.1); Calc. Creatinine Clearance 109 mL/min (70-130); Calcium 9.7 mg/dL (7.8-10.44); Carbon Dioxide 29 mmol/L (23-31); Chloride 97 mmol/L (98-107); Estimated GFR 40; Glucose 172 mg/dL (80-115); Potassium 3.7 mmol/L (3.5-5.1); Sodium 139 mmol/L (136-145)
[2022-02-08] MEDS: Levothyroxine Sodium 100 MCG TAB PO SCH (05:53)
[2022-02-08] MEDS: HumaLOG 300 UNITS/3 ML VIAL SC PRN ×3 (05:53→16:57)
[2022-02-08] MEDS: Acetaminophen/Codeine 30-300mg Tablet PO PRN ×2 (05:53→12:40)
[2022-02-08] MEDS: ALPRAZolam 1 MG TAB PO PRN (08:52)
[2022-02-08] MEDS: Allopurinol 100 MG TAB PO SCH (08:55)
[2022-02-08] MEDS: Enoxaparin Sodium 40 MG/0.4 ML SYRINGE SC SCH (09:00)
[2022-02-08] MEDS ORDERED: Furosemide 40 MG/4 ML VIAL SLOW IVP SCH (09:00)
[2022-02-08] MEDS ORDERED: Loratadine 10 MG TAB PO SCH (09:30)
[2022-02-08] MEDS: Gabapentin 100 MG CAP PO SCH ×4 (10:15→21:12)
[2022-02-08] MEDS: Simvastatin 5 MG TAB PO SCH (12:41)
[2022-02-08] MEDS ORDERED: Nitroglycerin 0.4 MG TAB (25 Tab Bottle) ONE (20:45)
[2022-02-09 05:30] LABS: Anion Gap 13 mmol/L (10-20); BUN (Urea Nitrogen) 31 mg/dL (9.8-20.1); Calc. Creatinine Clearance 128 mL/min (70-130); Calcium 9.3 mg/dL (7.8-10.44); Carbon Dioxide 31 mmol/L (23-31); Chloride 97 mmol/L (98-107); Estimated GFR 48; Glucose 181 mg/dL (80-115); Potassium 3.7 mmol/L (3.5-5.1); Sodium 137 mmol/L (136-145)
[2022-02-09] MEDS: Aztreonam 1 GM in Sodium Chloride 0.9% 100 ML IVPB SCH ×3 (06:08→20:37)
[2022-02-09] MEDS: Levothyroxine Sodium 100 MCG TAB PO SCH (06:08)
[2022-02-09] MEDS: HumaLOG 300 UNITS/3 ML VIAL SC PRN ×3 (06:08→18:11)
[2022-02-09] MEDS ORDERED: Loratadine 10 MG TAB PO PRN (09:00)
[2022-02-09] MEDS ORDERED: Loratadine 10 MG TAB PO SCH (09:00)
[2022-02-09] MEDS: Acetaminophen/Codeine 30-300mg Tablet PO PRN ×3 (09:15→21:53)
[2022-02-09] MEDS: Allopurinol 100 MG TAB PO SCH (09:16)
[2022-02-09] MEDS: Enoxaparin Sodium 40 MG/0.4 ML SYRINGE SC SCH (09:16)
[2022-02-09] MEDS: Gabapentin 100 MG CAP PO SCH ×3 (09:17→20:37)
[2022-02-09] MEDS: ALPRAZolam 1 MG TAB PO PRN (20:38)
[2022-02-10] MEDS: Aztreonam 1 GM in Sodium Chloride 0.9% 100 ML IVPB SCH (04:35)
[2022-02-10 05:36] LABS: Anion Gap 13 mmol/L (10-20); BUN (Urea Nitrogen) 30 mg/dL (9.8-20.1); Calc. Creatinine Clearance 133 mL/min (70-130); Calcium 9.4 mg/dL (7.8-10.44); Carbon Dioxide 30 mmol/L (23-31); Chloride 100 mmol/L (98-107); Estimated GFR 51; Glucose 163 mg/dL (80-115); Potassium 4.1 mmol/L (3.5-5.1); Sodium 139 mmol/L (136-145)
[2022-02-10] MEDS: Levothyroxine Sodium 100 MCG TAB PO SCH (05:47)
[2022-02-10] MEDS: Allopurinol 100 MG TAB PO SCH (09:34)
[2022-02-10] MEDS: Gabapentin 100 MG CAP PO SCH (09:35)
[2022-02-10] MEDS: Enoxaparin Sodium 40 MG/0.4 ML SYRINGE SC SCH (09:35)
[2022-02-10 12:21] VITALS: BP 104/57; TEMP 98.3
== END 2022-02-10 13:50 | disposition home or self-care (01) | DRG 291 ==
LOC: ERS 16:14 → ERHOLD 19:40 → 2SW 23:10 → OBSVTOIN 02-05 11:35
PROVIDERS: ADMIT Family Medicine; ATTEND Family Medicine
DX: I13.0 Hypertensive heart and chronic kidney disease with heart failure and stage 1 through stage 4 chronic kidney disease, or unspecified chronic kidney disease (principal); I50.33 Acute on chronic diastolic (congestive) heart failure; Z68.44 Body mass index [BMI] 60.0-69.9, adult; N39.0 Urinary tract infection, site not specified; N17.9 Acute kidney failure, unspecified; E66.01 Morbid (severe) obesity due to excess calories; F41.9 Anxiety disorder, unspecified; F32.A Depression, unspecified; E78.5 Hyperlipidemia, unspecified; K21.9 Gastro-esophageal reflux disease without esophagitis; G47.33 Obstructive sleep apnea (adult) (pediatric); J44.9 Chronic obstructive pulmonary disease, unspecified; N18.9 Chronic kidney disease, unspecified; M10.9 Gout, unspecified; M54.30 Sciatica, unspecified side; E03.9 Hypothyroidism, unspecified; E11.22 Type 2 diabetes mellitus with diabetic chronic kidney disease; Z85.528 Personal history of other malignant neoplasm of kidney; Z88.1 Allergy status to other antibiotic agents; Z91.040 Latex allergy status; Z91.013 Allergy to seafood; Z88.2 Allergy status to sulfonamides; Z91.09 Other allergy status, other than to drugs and biological substances; Z79.899 Other long term (current) drug therapy; Z79.84 Long term (current) use of oral hypoglycemic drugs; Z90.49 Acquired absence of other specified parts of digestive tract; Z90.89 Acquired absence of other organs; Z83.3 Family history of diabetes mellitus; Z82.49 Family history of ischemic heart disease and other diseases of the circulatory system; Z79.890 Hormone replacement therapy; Z98.890 Other specified postprocedural states; Z90.5 Acquired absence of kidney
CPT/HCPCS: 36415; 36416; 71045; 76775; 80048; 80053; 81001; 82570; 83036; 83880; 84156; 84300; 84484; 84540; 85025; 85027; 87086; 93005; 93306; 93798; 94640; 96374; 96376; G0378; J1650; J1815; J1940; J3490; J7620; U0003; U0005